=== PATIENT | male | born 1965 | race Caucasian/White ===

== ENCOUNTER 2020-12-19 16:35 | Emergency (ER) | payer MEDICAID ==
[~2020-12-19] VITALS: Ht 177.8 cm; Wt 140.0 kg
[~2020-12-19 16:35] MED LIST: QUET300T2 PO; TRAZ-257 PO
[2020-12-19] MEDS ORDERED: TraMADol HCL 50 MG TABLET PO ONE (17:30)
[2020-12-19] MEDS ORDERED: IBUPROFEN 600 MG TABLET PO ONE (17:30)
[2020-12-19 18:54] VITALS: BP 134/81
== END 2020-12-19 18:58 | disposition home or self-care (01) ==
LOC: EMS 16:35
DX: G89.29 Other chronic pain (principal); M54.5 Low back pain; F17.210 Nicotine dependence, cigarettes, uncomplicated; F14.90 Cocaine use, unspecified, uncomplicated; Z79.899 Other long term (current) drug therapy; V49.69XA Unspecified car occupant injured in collision with other motor vehicles in traffic accident, initial encounter; Y93.89 Activity, other specified; Y92.413 State road as the place of occurrence of the external cause; Y99.8 Other external cause status
CPT/HCPCS: 99283

== ENCOUNTER 2021-03-10 17:04 | Emergency (ER) | payer MEDICAID ==
[~2021-03-10] VITALS: Ht 177.8 cm; Wt 109.1 kg
[2021-03-10 17:12] VITALS: BP 150/90
== END 2021-03-10 17:40 | disposition left against medical advice (07) ==
LOC: EMS 17:06
DX: M54.5 Low back pain (principal); Z53.21 Procedure and treatment not carried out due to patient leaving prior to being seen by health care provider

== ENCOUNTER 2021-03-11 12:08 | Emergency (ER) | payer MEDICAID | END 2021-03-11 12:17 | disposition left against medical advice (07) | LOC: EMS 12:10 | DX: M54.9 Dorsalgia, unspecified (principal); Z53.21 Procedure and treatment not carried out due to patient leaving prior to being seen by health care provider ==

== ENCOUNTER 2021-03-14 11:50 | Emergency (ER) | payer MEDICAID | END 2021-03-14 12:13 | disposition left against medical advice (07) | LOC: EMS 12:04 | DX: R10.9 Unspecified abdominal pain (principal); Z53.21 Procedure and treatment not carried out due to patient leaving prior to being seen by health care provider ==

== ENCOUNTER 2021-04-28 15:24 | Emergency (ER) | payer MEDICAID | END 2021-04-28 16:05 | disposition left against medical advice (07) | LOC: EMS 15:27 | DX: F22 Delusional disorders (principal); Z53.21 Procedure and treatment not carried out due to patient leaving prior to being seen by health care provider ==

== ENCOUNTER 2021-05-18 22:51 | Emergency (ER) | payer MEDICAID ==
[~2021-05-18] VITALS: Ht 177.8 cm; Wt 113.6 kg
[2021-05-18 22:59] VITALS: BP 132/84
== END 2021-05-19 01:58 | disposition left against medical advice (07) ==
LOC: EMS 22:53
DX: T14.8XXA Other injury of unspecified body region, initial encounter (principal); Z53.21 Procedure and treatment not carried out due to patient leaving prior to being seen by health care provider

== ENCOUNTER 2021-08-06 00:48 | Emergency (ER) | payer MEDICAID ==
[~2021-08-06] VITALS: Ht 177.8 cm; Wt 95.5 kg
[2021-08-06] MEDS ORDERED: KETOROLAC TROMETHAMINE 60 MG/2 ML VIAL IM ONE (02:15)
[2021-08-06] MEDS ORDERED: HYDROCODONE/ACETAMINOPHEN 5-325 MG TABLET PO ONE (02:15)
[2021-08-06 04:00] VITALS: BP 125/94
== END 2021-08-06 04:23 | disposition home or self-care (01) ==
LOC: EMS 00:49
DX: S70.311A Abrasion, right thigh, initial encounter (principal); M41.9 Scoliosis, unspecified; F20.9 Schizophrenia, unspecified; F17.210 Nicotine dependence, cigarettes, uncomplicated; F14.90 Cocaine use, unspecified, uncomplicated; F15.90 Other stimulant use, unspecified, uncomplicated; F12.90 Cannabis use, unspecified, uncomplicated; W18.30XA Fall on same level, unspecified, initial encounter; Y93.89 Activity, other specified; Y92.89 Other specified places as the place of occurrence of the external cause; Y99.8 Other external cause status
CPT/HCPCS: 29505; 73552; 73562; 96372; 99284; J1885

== ENCOUNTER 2021-08-11 18:49 | Emergency (ER) | payer MEDICAID ==
[~2021-08-11] VITALS: Ht 177.8 cm; Wt 100.0 kg
[2021-08-11 18:54] VITALS: BP 122/85
== END 2021-08-11 19:40 | disposition left against medical advice (07) ==
LOC: EMS 18:52
DX: M79.673 Pain in unspecified foot (principal); Z53.21 Procedure and treatment not carried out due to patient leaving prior to being seen by health care provider

== ENCOUNTER 2021-08-13 00:23 | Emergency (ER) | payer MEDICAID ==
[~2021-08-13] VITALS: Ht 177.8 cm; Wt 98.6 kg
[2021-08-13] MEDS ORDERED: KETOROLAC TROMETHAMINE 30 MG/ML VIAL IM ONE (03:15)
[2021-08-13 03:18] VITALS: BP 153/99
== END 2021-08-13 03:39 | disposition home or self-care (01) ==
LOC: EMS 00:24
DX: M19.071 Primary osteoarthritis, right ankle and foot (principal); F20.9 Schizophrenia, unspecified; I10 Essential (primary) hypertension; F17.210 Nicotine dependence, cigarettes, uncomplicated; F12.90 Cannabis use, unspecified, uncomplicated; Z79.899 Other long term (current) drug therapy
CPT/HCPCS: 99283

== ENCOUNTER 2021-08-13 20:32 | Emergency (ER) | payer MEDICAID ==
[~2021-08-13] VITALS: Ht 177.8 cm; Wt 95.5 kg
[2021-08-13] MEDS ORDERED: ACETAMINOPHEN 500 MG TABLET PO ONE (21:15)
[2021-08-13 21:20] VITALS: BP 146/77
== END 2021-08-13 22:22 | disposition home or self-care (01) ==
LOC: EMS 20:32
DX: F25.9 Schizoaffective disorder, unspecified (principal); I10 Essential (primary) hypertension; F17.210 Nicotine dependence, cigarettes, uncomplicated; F12.90 Cannabis use, unspecified, uncomplicated; V29.9XXA Motorcycle rider (driver) (passenger) injured in unspecified traffic accident, initial encounter; Y93.89 Activity, other specified; Y92.89 Other specified places as the place of occurrence of the external cause; Y99.8 Other external cause status
CPT/HCPCS: 99284; Z7502; Z7610

== ENCOUNTER 2021-08-14 13:34 | Emergency (ER) | payer MEDICAID ==
[~2021-08-14] VITALS: Ht 177.8 cm; Wt 95.5 kg
[2021-08-14] MEDS ORDERED: IBUPROFEN 600 MG TABLET PO ONE (14:30)
[2021-08-14] MEDS ORDERED: LIDOCAINE 5% TRANSDERMAL PATCH TD ONE (14:30)
[2021-08-14 15:06] VITALS: BP 120/85
== END 2021-08-14 16:00 | disposition home or self-care (01) ==
LOC: EMS 13:36
DX: M54.6 Pain in thoracic spine (principal); I10 Essential (primary) hypertension; F12.90 Cannabis use, unspecified, uncomplicated; F17.210 Nicotine dependence, cigarettes, uncomplicated; Z79.899 Other long term (current) drug therapy
CPT/HCPCS: 72070; 99283

== ENCOUNTER 2021-08-21 01:23 | Emergency (ER) | payer MEDICAID ==
[~2021-08-21] VITALS: Ht 177.8 cm; Wt 104.5 kg
[2021-08-21 03:50] VITALS: BP 124/84
== END 2021-08-21 04:24 | disposition home or self-care (01) ==
LOC: EMS 01:24
DX: R23.8 Other skin changes (principal); I10 Essential (primary) hypertension; F17.210 Nicotine dependence, cigarettes, uncomplicated; F12.90 Cannabis use, unspecified, uncomplicated; Z59.00 Homelessness unspecified
CPT/HCPCS: 99281; Z7502

== ENCOUNTER 2021-08-22 22:00 | Emergency (ER) | payer MEDICAID | END 2021-08-22 22:10 | disposition home or self-care (01) | LOC: EMS 22:05 | DX: Z00.00 Encounter for general adult medical examination without abnormal findings (principal); Z53.21 Procedure and treatment not carried out due to patient leaving prior to being seen by health care provider ==

== ENCOUNTER 2021-09-05 20:04 | Emergency (ER) | payer MEDICAID ==
[~2021-09-05] VITALS: Ht 177.8 cm; Wt 95.5 kg
[2021-09-05 21:10] VITALS: BP 141/93
== END 2021-09-05 22:30 | disposition left against medical advice (07) ==
LOC: EMS 20:10
DX: M79.671 Pain in right foot (principal); Z53.21 Procedure and treatment not carried out due to patient leaving prior to being seen by health care provider

== ENCOUNTER 2022-04-13 03:13 | Emergency (ER) | payer MEDICAID ==
[~2022-04-13] VITALS: Ht 177.8 cm; Wt 86.4 kg
[2022-04-13 03:31] VITALS: BP 146/82
== END 2022-04-13 06:21 | disposition left against medical advice (07) ==
LOC: EMS 03:25
DX: Z53.21 Procedure and treatment not carried out due to patient leaving prior to being seen by health care provider (principal)

== ENCOUNTER 2022-07-22 13:50 | Emergency (ER) | payer MEDICAID ==
[~2022-07-22] VITALS: Ht 177.8 cm; Wt 86.4 kg
[2022-07-22] MEDS ORDERED: SULF-261 PO (15:28)
[2022-07-22 15:58] VITALS: BP 133/95
== END 2022-07-22 16:31 | disposition home or self-care (01) ==
LOC: EMS 13:50
DX: L03.317 Cellulitis of buttock (principal); F20.9 Schizophrenia, unspecified; F17.210 Nicotine dependence, cigarettes, uncomplicated
CPT/HCPCS: 99283; Z7502

== ENCOUNTER 2022-08-05 04:19 | Emergency (ER) | payer MEDICAID ==
[~2022-08-05] VITALS: Ht 177.8 cm; Wt 86.4 kg
[~2022-08-05 04:19] MED LIST changes: +SULF-261 PO
[2022-08-05 04:22] VITALS: BP 144/77
[2022-08-05] MEDS ORDERED: SULF-261 PO (20:51)
[2022-08-05] MEDS ORDERED: CEPH-558 PO (20:52)
== END 2022-08-05 11:33 | disposition left against medical advice (07) ==
LOC: EMS 04:20
DX: T14.8XXA Other injury of unspecified body region, initial encounter (principal); Z53.21 Procedure and treatment not carried out due to patient leaving prior to being seen by health care provider

== ENCOUNTER 2022-08-05 17:52 | Emergency (ER) | payer MEDICAID ==
[~2022-08-05] VITALS: Ht 177.8 cm; Wt 86.4 kg
[2022-08-05] MEDS ORDERED: SULF-261 PO (20:51)
[2022-08-05] MEDS ORDERED: CEPH-558 PO (20:52)
[2022-08-05 21:11] VITALS: BP 141/90
== END 2022-08-05 21:16 | disposition home or self-care (01) ==
LOC: EMS 18:29
DX: L03.317 Cellulitis of buttock (principal); F20.9 Schizophrenia, unspecified; F17.210 Nicotine dependence, cigarettes, uncomplicated; Z76.0 Encounter for issue of repeat prescription
CPT/HCPCS: 99281; Z7502